=== PATIENT | male | born 1950 | race Caucasian/White ===

== ENCOUNTER → 2025-06-28 | Outpatient (CLI) | payer MEDICARE, OTHER, SELFPAY ==
--- NOTE | 2025-06-28 14:14 | RAD_ITS ---
PROCEDURE: ANKLE MIN 3 VIEWS 06/28/2025 REASON FOR EXAM: OTHER SPECIFIED ARTHRITIS, UNSPECIFIED ANKLE AND FOOT TECHNIQUE: ANKLE MIN 3 VIEWS Laterality: Right COMPARISON: None. FINDINGS: BONES: No acute fracture or focal osseous lesion. JOINTS: No dislocation. The joint spaces are normal. SOFT TISSUES: There is diffuse swelling in the medial ankle. RAD/Ankle min 3 Views IMPRESSION: SOFT TISSUE SWELLING. NO FRACTURE IDENTIFIED. Reading Location: [id number]
== END | disposition home or self-care (01) ==
LOC: MTLAB 14:12
PROVIDERS: PCP Nurse Practitioner Family; Referring Provider Podiatrist; Visit Provider Podiatrist
DX: M13.879 Other specified arthritis, unspecified ankle and foot (principal)
CPT/HCPCS: 73610